=== PATIENT | female | born 1995 | race Two or more races ===

== ENCOUNTER 2021-05-22 12:01 | Emergency (ER) | payer OTHER ==
[~2021-05-22] VITALS: Ht 157.5 cm; Wt 51.3 kg
[2021-05-22] MEDS ORDERED: RELPAX20 MG PO ×2 (12:44→15:36)
== END 2021-05-22 15:43 | disposition home or self-care (01) ==
LOC: ER 12:01
DX: R51.9 Headache, unspecified (principal)

== ENCOUNTER → 2025-01-07 | Emergency (ER) | payer OTHER ==
[~2025-01-07] VITALS: Ht 157.5 cm; Wt 54.4 kg
[~2025-01-07] MED LIST: ALBUTEROL SULFATE 0.5 ML/2.5 MG SOLUTION IH ONE; ALBUTEROL SULFATE 3 ML/2.5 MG AMPUL.NEB IH ONE; ALBUTEROL1.25 MG/3 IH; BACLOFEN10 MG; BENZONATATE200 M1 PO; CETIRIZINE HCL 5 MG/5 ML ML PO ONE; CETIRIZINE HCL 5MG/5ML BLIST.PACK PO ONE; CIPRO500 MG PO; GRALISE600 MG PO; GUAIFENESIN 200 MG/10 ML BLIST.PACK PO ONE; GUAIFENESIN/DEXTROMETHORPHAN 100MG/10ML BLIST.PACK PO ONE; LEVSIN/SL0.125 MG SL; PEPCID AC20 MG PO; RELPAX20 MG PO; ZYRTEC10 MG PO
[2025-01-07 21:33] LABS: BASO % 0.3 % (0.1-1.2); EOS # 0.25 (0.04-0.54); EOS % 3.8 % (0.7-7.0); HEMATOCRIT 35.3 % (34.1-44.9); HEMOGLOBIN 11.9 g/dL (11.2-15.7); LYMPH # 2.59 (1.18-3.74); LYMPH % 39.6 % (19.3-53.1); MEAN CORPUSCULAR HEMOGLOBIN 28.7 pg (25.6-32.2); MONO % 6.1 % (4.7-12.5); NEUT # 3.26 (1.56-6.13); NEUT % 49.9 % (34.0-71.1); PLATELET COUNT 230 K/uL (163-369); RED BLOOD COUNT 4.15 M/uL (3.93-5.22); RED CELL DISTRIBUTION WIDTH 13.2 % (11.6-14.4)
[2025-01-07 22:16] LABS: COVID-19 AG NEGATIVE (NEGATIVE)
[2025-01-07 22:24] LABS: INFLUENZA A AG NEGATIVE (NEGATIVE); INFLUENZA B AG NEGATIVE (NEGATIVE)
== END | disposition home or self-care (01) ==
LOC: ER 17:05
PROVIDERS: General Practice
DX: M94.0 Chondrocostal junction syndrome [Tietze] (principal); R05.9 Cough, unspecified; Z20.822 Contact with and (suspected) exposure to COVID-19